=== PATIENT | female | born 1965 | race Caucasian/White ===

== ENCOUNTER 2022-01-10 10:54 | Outpatient (CLI) | payer OTHER ==
[2022-01-10 18:45] LABS: SARS-CoV-2 PCR by NAA Not Detected (NotDetected)
== END 2022-01-10 10:55 | disposition home or self-care (01) ==
LOC: CSHLAB 10:54
PROVIDERS: ATTEND Neurological Surgery
DX: Z20.822 Contact with and (suspected) exposure to COVID-19 (principal)
CPT/HCPCS: U0003; U0005

== ENCOUNTER 2022-01-16 09:56 | Outpatient (CLI) | payer OTHER | END 2022-01-16 09:57 | disposition home or self-care (01) | LOC: CSHCT 09:56 | PROVIDERS: ATTEND Internal Medicine Critical Care Medicine | DX: J44.9 Chronic obstructive pulmonary disease, unspecified (principal); Z12.2 Encounter for screening for malignant neoplasm of respiratory organs | CPT/HCPCS: 71271; 94060; 94726; 94729; 94760 ==